=== PATIENT | male | born 1970 | race Caucasian/White ===

== ENCOUNTER → 2017-04-23 | Outpatient (CLI) | payer SELFPAY ==
--- NOTE | 2017-04-23 14:12 | CT ---
EXAM DESCRIPTION: Abdoment/Pelvis w/o Contrast CLINICAL HISTORY: 46 years, Male, LOWER ABDOMEN PAIN COMPARISON: None. TECHNIQUE: CT of the abdomen and pelvis is performed according to our non contrast protocol. FINDINGS: Multiple calcified gallstones are present in the gallbladder. There is no gallbladder wall thickening or pericholecystic edema. The lung bases are clear. Liver, spleen, and pancreas are unremarkable. The right kidney is unremarkable. The left kidney is unremarkable. Very prominent mesenteric edema is present in the left lower quadrant and there is wall thickening of the proximal and mid sigmoid colon with a prominent diverticulum which appears to have a fecalith within and is surrounded by very prominent pericolonic inflammation. There is no abscess or free fluid. Incidental note is made of a small fat-containing umbilical hernia. IMPRESSION: 1. Uncomplicated very prominent sigmoid diverticulitis 2. Cholelithiasis 3. Fat-containing umbilical hernia This exam was performed according to our departmental dose-optimization program, which includes automated exposure control, adjustment of the mA and/or kV according to patient size and/or use of iterative reconstruction technique. Electronically signed by: Bolivar Maher MD 04/23/2017 2:13 PM CDT
== END | disposition home or self-care (01) ==
LOC: CT 13:22
PROVIDERS: ATTEND General Practice
DX: K57.30 Diverticulosis of large intestine without perforation or abscess without bleeding (principal); K80.20 Calculus of gallbladder without cholecystitis without obstruction; K42.9 Umbilical hernia without obstruction or gangrene